=== PATIENT | female | born 1950 | race Caucasian/White ===

== ENCOUNTER → 2018-04-06 08:40 | Outpatient (CLI) | payer MEDICARE, OTHER, SELFPAY ==
--- NOTE | 2018-04-06 | DI.MG.S_ITS ---
BILATERAL DIGITAL SCREENING MAMMOGRAM 3D/2D WITH CAD: 04/06/2018 CLINICAL: Routine screening. Comparison is made to exams dated: 05/17/2016 mammogram, 01/10/2014 mammogram, and 03/14/2015 mammogram - [facility]. There are scattered fibroglandular elements in both breasts. Current study was also evaluated with a Computer Aided Detection (CAD) system. No significant masses, calcifications, or other findings are seen in either breast. There has been no significant interval change. IMPRESSION: NEGATIVE There is no mammographic evidence of malignancy. A 1 year screening mammogram is recommended. This exam was interpreted at Station ID: [id number]. NOTE: For mammograms, a report in lay terms will be sent to the patient. Approximately 15% of breast malignancies will not be visualized mammographically. In the management of a palpable breast mass, a negative mammogram must not discourage biopsy of a clinically suspicious lesion. Electronically Signed By: Kathryn waterman/alexus:04/06/2018 11:31:06 letter sent: Normal Exam ACR BI-RADS Category 1: Negative 3341F
== END ==
PROVIDERS: PCP Family Medicine; Visit Provider Family Medicine
DX: Z12.31 Encounter for screening mammogram for malignant neoplasm of breast (principal); M81.0 Age-related osteoporosis without current pathological fracture
CPT/HCPCS: 77063; 77067; 77080

== ENCOUNTER 2018-04-20 08:27 | Day surgery (SDC) | payer MEDICARE, OTHER, SELFPAY ==
--- NOTE | 2018-04-20 | PATH_ITS ---
[facility] Accession Number: [id number] . 01 Material submitted: . CECAL POLYP . 02 Diagnosis: Cecum, Polyp, Biopsy: Tubular adenoma. MRV/04/24/2018 . 02 Electronically signed: . Kathe Lucero MD, Pathologist NPI- [id number] . 01 Gross description: . CECAL POLYP: Received in formalin are 2 fragment(s) of argueta, soft tissue measuring 0.8 x 0.3 x 0.2 cm to 0.3 x 0.3 x 0.1 cm submitted entirely in 1 cassette(s) /CKI /CKI . 02 Pathologist provided ICD-10: D12.0 . 02 CPT . 746145 Specimen Comment: A duplicate report has been generated due to demographic updates. Performed at: 01 [facility] [address] [place] [place] [address], [place], [place] [id number] MD Kem Méndez MD Phone: [phone] Performed at: [facility] [address] [place], [place] [id number] MD Manpreet Ray MD Phone: [phone]
[2018-04-20 08:39] VITALS: BP 145/101; PULSE 92; RESP 12; TEMP 36.3; O2SAT 96; BMI 33.3
[2018-04-20] MEDS: SODIUM CHLORIDE 0.9% 1,000 ML 200 ML IV (08:39)
[2018-04-20 09:09] VITALS: BMI 33.3
--- NOTE | 2018-04-20 09:34 | PM.HP.1 ---
History of Present Illness Date Patient Seen: 04/20/18 Time Patient Seen: 09:35 Chief complaint: [id number] Narrative: Wonderful 67-year-old lady with a personal history of diverticulitis. Her last colonoscopy was 5 years ago. She does not recall having any polyps in the past. She denies any abdominal pain today and denies any nausea or fever. She is here today for surveillance colonoscopy. Patient History Family & Social History Family History: Reviewed 04/20/18 by Heidi Lazar MD Social History: household members family Meds Home Medications Medication Instructions Recorded Confirmed Type LEVOTHYROXINE SODIUM (#SYNTHROID) #0 06/15/11 History aripiprazole [Abilify] #0 06/15/11 History atorvastatin [Lipitor] #0 06/15/11 History metoprolol tartrate PO DAILY 04/20/18 History Allergies Allergy/AdvReac Type Severity Reaction Status Date / Time Penicillins [PENICILLINS] Allergy Unknown Unverified 09/28/17 12:58 Sulfa (Sulfonamide Allergy Unknown Unverified 09/28/17 12:58 Antibiotics) [SULFA (SULFONAMIDE ANTIBIOTICS)] Review of Systems Review of Systems All systems reviewed & are unremarkable except as noted in HPI and below Exam Vital Signs (past 8 hours): - 04/20/18 08:39 Temperature 97.3 F L Pulse Rate 92 H Respiratory Rate 12 Blood Pressure 145/101 H Pulse Oximetry 96 Oxygen Delivery Method Room Air Narrative Exam Narrative: One full 67-year-old lady in no distress HEENT: Normocephalic and atraumatic, pupils equal round reactive to light accommodation with anicteric sclera Lungs: Clear to auscultation bilaterally Heart: Regular rate and rhythm without murmur rub or gallop Abdomen: Soft, nontender, active bowel sounds Extremities: Warm and well perfused without edema Assessment & Plan Plan: Assessment/Plan Narrative: [place] 67-year-old lady with a personal history of diverticulitis and 2 fairly severe episodes this past year. It has been 5 years since her last colonoscopy. We have discussed the risks and benefits of colonoscopy and the patient expressed a desire to complete the procedure today.
[2018-04-20] MEDS: MIDAZOLAM 5 MG/5 ML VIAL IV (10:02)
[2018-04-20] MEDS: fentaNYL 250 MCG/5 ML INJ IV (10:03)
--- NOTE | 2018-04-20 10:07 | PM.OP.1 ---
Operative Date/Time/Diagnoses Date of procedure: 04/20/18 Time of procedure: 10:07 Pre-op diagnosis: Diverticulitis Post-op diagnosis: same Procedure & Clinicians Procedure: Colonoscopy to the cecum with polypectomy x1 Same procedure as scheduled: Yes Indications: Last colonoscopy 5 years ago Surgeon: Heidi Lazar Anesthesia Type: Sedation (Versed 5 mg, fentanyl 200 mcg) Operative Notes Findings: 1. Excellent prep 2. A single 2-3 mm polyp in the cecum-removed with cold forceps and retained for pathology 3. Mildly tortuous sigmoid colon 4. Sigmoid diverticulosis without evidence of diverticulitis. No false passages are noted. No evidence of inflammation 5. Grade 2 internal hemorrhoids Closure Type: not applicable Specimen(s): other (Polyp at the cecum) Estimated Blood Loss (mL): 1 Procedure in detail: After obtaining informed consent, the patient was brought to the GI suite and placed in the left lateral decubitus position on the examination table. After placement of appropriate monitors, the patient was given incremental doses of Versed and Fentanyl until an appropriate level of sedation was achieved. A time out was held per SCOAP protocol. A digital rectal examination was performed and did not reveal any masses or obstructing lesions. The colonoscope was gently passed into the patient's anus and the entire colon navigated to the level of the cecum with minimal difficulty. Once in the cecum, the scope was withdrawn being sure to go before and beyond all mucosal folds and prominences and get an excellent examination. The findings are noted above. At the level of the rectal vault, the scope was retroflexed and the internal anal canal was examined. The scope was straightened and air aspirated from the colon. The instrument was removed from the patient's body and the procedure was concluded. The patient was allowed to awaken from sedation without difficulty and taken to the post-anesthesia care unit in good condition. Total sedation time 26 min Total withdrawal time 13 min 12 sec Condition: stable Disposition: PACU Plan for aftercare: 1. Discharge to home 2. Plan for next colonoscopy in 5 years or as clinically indicated 3. We will contact you with pathology results and any additional recommendations.
[2018-04-20 10:11] VITALS: BP 105/70; PULSE 80; RESP 10; TEMP 36.2; O2SAT 97
[2018-04-20 10:15] VITALS: BP 104/79; PULSE 91; RESP 19; O2SAT 96
--- NOTE | 2018-04-20 10:18 | SUR.PHASEI ---
stable pacu to opd.
[2018-04-20 10:20] VITALS: BP 115/83; PULSE 81; RESP 16; TEMP 36.6; O2SAT 97
[2018-04-20 10:25] VITALS: BP 115/83; PULSE 91; RESP 15; TEMP 36.8; O2SAT 97
== END 2018-04-20 10:42 | disposition home or self-care (01) ==
PROVIDERS: PCP Family Medicine; Referring Provider Surgery; Visit Provider Surgery
PROC: 0DJD8ZZ Inspection of Lower Intestinal Tract, Via Natural or Artificial Opening Endoscopic (ICD-10-PCS; CPT 45378; principal; 2018-04-20 09:45)
DX: Z87.19 Personal history of other diseases of the digestive system (principal); K57.30 Diverticulosis of large intestine without perforation or abscess without bleeding; K64.1 Second degree hemorrhoids; D12.0 Benign neoplasm of cecum
CPT/HCPCS: 45380; 88305; 99152; 99153; J2250; J3010

== ENCOUNTER → 2018-05-17 11:01 | Outpatient (CLI) | payer MEDICARE, OTHER, SELFPAY ==
--- NOTE | 2018-05-17 | DI.CT.S_ITS ---
PROCEDURE: CT UE RT WO CON INDICATIONS: Right shoulder pain. Displaced fracture of glenoid cavity of RIGHT scapula post fall. TECHNIQUE: Noncontrast 1-1.5 mm thick sections acquired from the acromioclavicular joint to the inferior scapula, with coronal and sagittal reformatting. COMPARISON: [facility], CR, XR SHOULDER 2+ VIEWS RIGHT, 05/15/2018, 11:45. FINDINGS: Image quality: Diagnostic. Bones: There is a comminuted intra-articular fracture identified involving the glenoid with a moderate-sized displaced fragment noted along the superior margin of the glenohumeral joint. This fracture is predominantly seen along the anteroinferior aspect of the glenoid, suspicious for a bony Bankart fracture. This fracture measures approximately 2.5 cm in craniocaudal dimension and 7 mm in width. The humeral head appears to be intact. No displaced fractures of the humerus are evident. The remainder of the scapula is unremarkable. There are degenerative changes of the glenohumeral and acromioclavicular joints. No suspicious osseous lesions are identified. Soft tissues: There is a large glenohumeral joint effusion. No soft tissue masses or drainable fluid collections are evident. The imaged portions of the right lung are grossly unremarkable. IMPRESSION: 1. Comminuted anteroinferior glenoid fracture with moderate displaced fragments present. This is suggestive of a sustained anteroinferior shoulder dislocation. Please correlate clinically. 2. The humeral head appears intact. 3. Large joint effusion. Dictated by: Kyle Day M.D. on 05/17/2018 at 16:32 Approved by: Kyle Day M.D. on 05/17/2018 at 16:37
== END ==
PROVIDERS: PCP Family Medicine; Visit Provider Orthopaedic Surgery
DX: S42.141A Displaced fracture of glenoid cavity of scapula, right shoulder, initial encounter for closed fracture (principal); M25.411 Effusion, right shoulder; M19.011 Primary osteoarthritis, right shoulder
CPT/HCPCS: 73200

== ENCOUNTER → 2020-04-03 12:26 | Outpatient (CLI) | payer MEDICARE, OTHER, SELFPAY ==
--- NOTE | 2020-04-03 | DI.MG.S_ITS ---
BILATERAL DIGITAL SCREENING MAMMOGRAM 3D/2D WITH CAD: 04/03/2020 CLINICAL: Routine screening. Comparison is made to exams dated: 04/06/2018 mammogram, 05/17/2016 mammogram, and 03/14/2015 mammogram - [facility]. There are scattered fibroglandular elements in both breasts. Current study was also evaluated with a Computer Aided Detection (CAD) system. No significant masses, calcifications, or other findings are seen in either breast. There has been no significant interval change. IMPRESSION: NEGATIVE There is no mammographic evidence of malignancy. A 1 year screening mammogram is recommended. This exam was interpreted at Station ID: [id number]. NOTE: For mammograms, a report in lay terms will be sent to the patient. Approximately 15% of breast malignancies will not be visualized mammographically. In the management of a palpable breast mass, a negative mammogram must not discourage biopsy of a clinically suspicious lesion. Electronically Signed By: Kem gonsalez/alexus:04/03/2020 12:55:16 letter sent: Normal Exam ACR BI-RADS Category 1: Negative 3341F
== END ==
PROVIDERS: PCP Family Medicine; Referring Provider Family Medicine; Visit Provider Family Medicine
DX: Z12.31 Encounter for screening mammogram for malignant neoplasm of breast (principal); M85.852 Other specified disorders of bone density and structure, left thigh; Z78.0 Asymptomatic menopausal state; E07.9 Disorder of thyroid, unspecified
CPT/HCPCS: 77063; 77067; 77080

== ENCOUNTER → 2020-10-28 16:48 | Outpatient (CLI) | payer MEDICARE, OTHER, SELFPAY ==
--- NOTE | 2020-10-28 16:52 | DI.RAD.S_ITS ---
PROCEDURE: XR CERVICAL SPINE 2V OR 3V INDICATIONS: NECK PAIN TECHNIQUE: 3 view(s) of the cervical spine were acquired. COMPARISON: None. FINDINGS: Bones: No acute fracture. Multilevel degenerative endplate sclerosis and spurring. Diffuse facet arthropathy. Mild narrowing of the C5-C6 disc space. Remaining disc spaces preserved. Straightening of the normal lordotic curvature. Soft tissues: No prevertebral soft tissue swelling. IMPRESSION: Cervical spondylosis most pronounced at C5-C6. Diffuse facet arthropathy. Straightening of the normal lordotic curvature. Dictated by: Isaac Jones M.D. on 10/28/2020 at 17:42 Approved by: Isaac Jones M.D. on 10/28/2020 at 17:43
== END ==
PROVIDERS: PCP Family Medicine; Referring Provider Family Medicine; Visit Provider Family Medicine
DX: M54.2 Cervicalgia (principal); M47.812 Spondylosis without myelopathy or radiculopathy, cervical region
CPT/HCPCS: 72040

== ENCOUNTER → 2021-03-29 12:41 | Outpatient (CLI) | payer MEDICARE, OTHER, SELFPAY ==
[2021-03-29 13:31] LABS: COVID19 -Nasal RAPID POSITIVE (Negative)
== END ==
PROVIDERS: PCP Family Medicine; Visit Provider Nurse Practitioner Family
DX: U07.1 COVID-19 (principal)
CPT/HCPCS: 87635

== ENCOUNTER → 2021-04-22 15:04 | Outpatient (CLI) | payer MEDICARE, OTHER, SELFPAY | PROVIDERS: PCP Family Medicine; Referring Provider Family Medicine; Visit Provider Family Medicine | DX: Z12.31 Encounter for screening mammogram for malignant neoplasm of breast (principal); Z53.8 Procedure and treatment not carried out for other reasons ==

== ENCOUNTER → 2021-05-04 12:49 | Outpatient (CLI) | payer MEDICARE, OTHER, SELFPAY ==
[2021-05-04 14:10] LABS: Add Manual Diff / Slide Review NO; Basophils Absolute Auto 100 /uL (0-100); Basophils Percent Auto 1.2 % (0-2); Eosinophils Absolute Auto 300 /uL (0-450); Eosinophils Percent Auto 4.3 % (2-4); Hematocrit 38.1 % (36-46); Hemoglobin 12.7 g/dL (12.0-16.0); Lymphocytes Absolute Auto 2100 /uL (1100-4500); Lymphocytes Percent Auto 28.8 % (25-40); Mean Corpuscular HGB Conc 33.3 % (30-36); Mean Corpuscular Hemoglobin 27.2 PG (26-34); Mean Corpuscular Volume 81.6 fL (80-100); Monocytes Absolute Auto 500 /uL (0-900); Monocytes Percent Auto 7.1 % (3-14); Neutrophils Absolute Auto 4200 /uL (1500-7000); Neutrophils Percent Auto 58.6 % (50-75); Platelet Count 221 X10^3/uL (150-400); Red Blood Cell Count 4.67 X10^6/uL (4.0-5.2); Red Cell Distribution Width 16.4 % (11.6-14.8); White Blood Cell Count 7.2 X10^3/uL (4.5-11.0)
[2021-05-04 14:19] LABS: Alanine Aminotransferase 22 IU/L (<35); Albumin 4.1 g/dL (3.5-5.0); Albumin Globulin Ratio 1.6 (1.0-2.8); Alkaline Phosphatase 41 U/L (38-126); Aspartate Aminotransferase 27 IU/L (14-36); BUN Creatinine Ratio 24.4 (6-22); Bilirubin Total 0.3 mg/dL (0.2-1.3); Blood Urea Nitrogen 22 mg/dL (7-17); Calcium 9.7 mg/dL (8.4-10.2); Carbon Dioxide 24 mmol/L (22-32); Chloride 106 mmol/L (98-107); Estimated Glomerular Filt Rate > 60.0 mL/min (>60); Globulin 2.6 g/dL (1.7-4.1); Glucose 86 mg/dL (80-110); HEMOLYSIS < 15 (0-50); Potassium 4.8 mmol/L (3.4-5.1); Sodium 141 mmol/L (137-145); Total Protein 6.7 g/dL (6.3-8.2)
== END ==
PROVIDERS: PCP Family Medicine; Referring Provider Family Medicine; Visit Provider Family Medicine
DX: R59.1 Generalized enlarged lymph nodes (principal); Z86.16 Personal history of COVID-19
CPT/HCPCS: 36415; 80053; 85025

== ENCOUNTER → 2021-05-21 13:22 | Outpatient (CLI) | payer MEDICARE, OTHER, SELFPAY ==
--- NOTE | 2021-05-21 | DI.MG.S_ITS ---
BILATERAL DIGITAL DIAGNOSTIC MAMMOGRAM 3D/2D: 05/21/2021 CLINICAL: Right breast lump. Fibrocystic breast disease. Comparison is made to exams dated: 04/03/2020 mammogram, 04/06/2018 mammogram, and 05/17/2016 mammogram - [facility]. There are scattered fibroglandular elements in both breasts. No significant masses, calcifications, or other findings are seen in either breast. IMPRESSION: INCOMPLETE: NEEDS ADDITIONAL IMAGING EVALUATION There is no abnormality seen in the right breast to correspond with the palpable abnormality in the lower inner quadrant, however, ultrasound is recommended. Ultrasound will be performed immediately following the current exam. This exam was interpreted at Station ID: [id number]. NOTE: For mammograms, a report in lay terms will be sent to the patient. Approximately 15% of breast malignancies will not be visualized mammographically. In the management of a palpable breast mass, a negative mammogram must not discourage biopsy of a clinically suspicious lesion. Electronically Signed By: Kem Raphael M.D. ddp/:05/21/2021 13:57:26 ACR BI-RADS Category 0: Incomplete 3340F
--- NOTE | 2021-05-21 | DI.RAD.S_ITS ---
PROCEDURE: XR LUMBAR SPINE 2-3V INDICATIONS: BACK PAIN TECHNIQUE: 3 views of the lumbar spine were acquired. COMPARISON: CT, ABDOMEN/PELVIS WITH CONTRAST, 07/07/2017, 13:34. FINDINGS: Bones: 5 jjo-emq-lwvcfmm vertebrae are present. There is normal bony alignment. Small vertebral body osteophytes. Lower lumbar spine facet joint hypertrophy. Mild disc space height loss at L5-S1. No vertebral body compression fractures. No suspicious bony lesions. Soft tissues: Overlying bowel gas pattern is normal. No suspicious soft tissue calcifications. IMPRESSION: No compression fracture. Hghr-gw-ijqpinqh degenerative change. Dictated by: Edgar Llamas M.D. on 05/21/2021 at 15:14 Approved by: Edgar Llamas M.D. on 05/21/2021 at 15:16
--- NOTE | 2021-05-21 | DI.US.S_ITS ---
LIMITED ULTRASOUND OF RIGHT BREAST: 05/21/2021 CLINICAL: Palpable right breast lump. Comparison is made to exams dated: 05/21/2021 mammogram, 04/03/2020 mammogram, 04/06/2018 mammogram, 05/17/2016 ultrasound, 05/17/2016 mammogram, and 03/14/2015 mammogram - [facility]. Real-time ultrasound of the right breast 4 o'clock region was performed on the area of interest. No discrete cystic or solid mass lesion identified in the area of palpable abnormality. IMPRESSION: NEGATIVE There is no sonographic evidence of malignancy. There is no abnormality seen in the right breast to correspond with the palpable abnormality at 4 o'clock, however, clinical followup is recommended. A 1 year screening mammogram is recommended. This exam was interpreted at Station ID: [id number]. Electronically Signed By: Kem Raphael M.D. ddvinnie/:05/21/2021 14:43:02 letter sent: Clinical Evaluation Ultrasound BI-RADS: 1 Negative
== END ==
PROVIDERS: PCP Family Medicine; Referring Provider Family Medicine; Visit Provider Family Medicine
DX: R92.8 Other abnormal and inconclusive findings on diagnostic imaging of breast (principal); N60.29 Fibroadenosis of unspecified breast; N63.14 Unspecified lump in the right breast, lower inner quadrant; M47.816 Spondylosis without myelopathy or radiculopathy, lumbar region; M54.9 Dorsalgia, unspecified
CPT/HCPCS: 72100; 76642; 77066; G0279

== ENCOUNTER → 2022-04-06 11:40 | Outpatient (CLI) | payer MEDICARE, OTHER, SELFPAY | PROVIDERS: PCP Family Medicine; Referring Provider Family Medicine; Visit Provider Family Medicine | DX: M81.0 Age-related osteoporosis without current pathological fracture | CPT/HCPCS: 77080 ==

== ENCOUNTER → 2022-06-24 10:57 | Outpatient (CLI) | payer MEDICARE, OTHER, SELFPAY ==
--- NOTE | 2022-06-24 | DI.MG.S_ITS ---
BILATERAL DIGITAL SCREENING MAMMOGRAM 3D/2D WITH CAD: 06/24/2022 CLINICAL: Routine screening. Family history of breast cancer. Comparison is made to exams dated: 05/21/2021 mammogram, 04/03/2020 mammogram, and 04/06/2018 mammogram - [facility]. There are scattered areas of fibroglandular density in both breasts (category b / 25%-50% glandular tissue). Current study was also evaluated with a Computer Aided Detection (CAD) system. No significant masses, calcifications, or other findings are seen in either breast. There has been no significant interval change. IMPRESSION: NEGATIVE There is no mammographic evidence of malignancy. A 1 year screening mammogram is recommended. Based on the Tyrer Cuzick model (a risk assessment model) the patient's lifetime risk is 2.8% and her 10 year risk is 2.1%. According to the ACR, ACS, and NCCN guidelines, an annual breast MRI exam along with mammogram is recommended if the patient's lifetime risk is 20% or greater. This exam was interpreted at Station ID: [id number]. NOTE: For mammograms, a report in lay terms will be sent to the patient. Approximately 15% of breast malignancies will not be visualized mammographically. In the management of a palpable breast mass, a negative mammogram must not discourage biopsy of a clinically suspicious lesion. Electronically Signed By: Lupillo Osborn M.D., jr/alexus:06/24/2022 12:16:30 letter sent: Normal Exam ACR BI-RADS Category 1: Negative 3341F
== END ==
PROVIDERS: PCP Family Medicine; Referring Provider Family Medicine; Visit Provider Family Medicine
DX: Z12.31 Encounter for screening mammogram for malignant neoplasm of breast (principal); Z80.3 Family history of malignant neoplasm of breast
CPT/HCPCS: 77063; 77067

== ENCOUNTER → 2023-07-20 10:50 | Outpatient (CLI) | payer MEDICARE, OTHER, SELFPAY ==
--- NOTE | 2023-07-20 10:54 | DI.RAD.S_ITS ---
PROCEDURE: XR CHEST 2V INDICATIONS: COUGH TECHNIQUE: 2 views of the chest were acquired. COMPARISON: None. FINDINGS: Surgical changes and devices: None. Lungs and pleura: Lungs are clear. No pleural effusions or pneumothorax. Mediastinum: Mediastinal contours are normal. Heart size is normal. Bones and chest wall: No suspicious bony abnormalities. Soft tissues appear unremarkable. IMPRESSION: No acute cardiopulmonary abnormality is seen. Dictated by: Leif Rodgers M.D. on 07/20/2023 at 11:27 Approved by: Leif Rodgers M.D. on 07/20/2023 at 11:41
== END ==
PROVIDERS: PCP Family Medicine; Referring Provider Family Medicine; Visit Provider Family Medicine
DX: R05.2 Subacute cough (principal); R07.89 Other chest pain
CPT/HCPCS: 71046

== ENCOUNTER → 2023-08-06 10:15 | Outpatient (CLI) | payer MEDICARE, OTHER, SELFPAY ==
--- NOTE | 2023-08-06 10:16 | DI.MG.S_ITS ---
BILATERAL DIGITAL SCREENING MAMMOGRAM 3D/2D WITH CAD: 08/06/2023 CLINICAL: Routine screening. Family history of breast cancer. Comparison is made to exams dated: 06/24/2022 mammogram, 05/21/2021 mammogram, 04/03/2020 mammogram, and 04/06/2018 mammogram - [facility]. Both breasts are heterogeneously dense, which may obscure small masses (category c / 51-75% glandular tissue). Current study was also evaluated with a Computer Aided Detection (CAD) system. No significant masses, calcifications, or other findings are seen in either breast. There has been no significant interval change. IMPRESSION: NEGATIVE There is no mammographic evidence of malignancy. A 1 year screening mammogram is recommended. Based on the Tyrer Cuzick model (a risk assessment model) the patient's lifetime risk is 3.7% and her 10 year risk is 3.3%. According to the ACR, ACS, and NCCN guidelines, an annual breast MRI exam along with mammogram is recommended if the patient's lifetime risk is 20% or greater. This exam was interpreted at Station ID: [id number]. NOTE: For mammograms, a report in lay terms will be sent to the patient. Approximately 15% of breast malignancies will not be visualized mammographically. In the management of a palpable breast mass, a negative mammogram must not discourage biopsy of a clinically suspicious lesion. Electronically Signed By: Armand juárez/alexus:08/08/2023 13:36:45 letter sent: Normal Exam ACR BI-RADS Category 1: Negative 3341F
== END ==
LOC: MAMMO 10:16
PROVIDERS: PCP Family Medicine; Referring Provider Family Medicine; Visit Provider Family Medicine
DX: Z12.31 Encounter for screening mammogram for malignant neoplasm of breast (principal); Z80.3 Family history of malignant neoplasm of breast; R92.333 Mammographic heterogeneous density, bilateral breasts
CPT/HCPCS: 77063; 77067

== ENCOUNTER → 2023-09-09 10:44 | Outpatient (CLI) | payer MEDICARE, OTHER, SELFPAY ==
--- NOTE | 2023-09-09 10:46 | DI.NM.S_ITS ---
PROCEDURE: NM VESNA PERF SPECT REST & STR Rest and exercise myocardial perfusion SPECT with gated imaging and ejection fraction RADIOPHARMACEUTICAL: 12.6 mCi Tc-99m sestamibi IV at rest and 25.5 mCi Tc-99m sestamibi IV at peak exercise. A one day-protocol was performed. INDICATIONS: Chest pain, unspecified TECHNIQUE: Radiopharmaceutical was injected at peak stress test, and also at rest. SPECT images were obtained. SPECT myocardial perfusion images were displayed in short axis, horizontal long axis, and vertical long axis views. Gated images were reviewed using [employer] software. COMPARISON: None. CARDIAC STRESS: A standard [place] treadmill exercise tolerance test was performed by the patient under the supervision of an attending staff. The patient exercised for 6 minutes and 3 seconds; functional aerobic impairment (AMY) is -11%. Hemodynamic data: There is normal blood pressure and heart rate response to exercise stress. Patient achieved 87% of maximum predicted heart rate at peak exercise. Symptoms: Patient denied chest pain during exercise. EKG: No diagnostic EKG changes of ischemia; no ectopy. FINDINGS: Raw data: There is good myocardial labeling by radiotracer. No significant motion artifacts. Zmyw-bq-vxdio ratio is 0.17 (normal is less than 0.38 for sestamibi tracer, and less than 0.50 for thallium tracer). Left ventricle function: Gated images demonstrate normal left ventricle wall thickening. No segmental wall motion abnormality. No transient ischemic dilation; TID is 0.88 (normal less than 1.3). The left ventricle resting end-diastolic volume is 56 mL. Left ventricle stress ejection fraction is 85%; normal values are above 45%. Myocardial perfusion: There is a mildly intense fixed distal anterior wall defect that is probably breast attenuation artifact but old non-transmural infarction can't be definitively excluded as prone imaging couldn't be obtained due to shoulder pain. IMPRESSION: Low risk, probably normal treadmill nuclear stress test from inducible ischemia standpoint. 1) There is a mildly intense fixed distal anterior wall defect that is probably breast attenuation artifact but old non-transmural infarction can't be definitively excluded as prone imaging couldn't be obtained due to shoulder pain. 2) Normal left ventricular size, wall motion, and systolic function (EF post stress 85%). 3) No diagnostic ST changes during exercise or recovery. 4) No angina during the study. 5) Above average exercise capacity (6.1METs, AMY -11%). Target heart rate reached. Appropriate BP response to exercise. 6) No prior nuclear stress test available for comparison. Dictated by: Benjamin Jernigan MD on 09/09/2023 at 16:41 Approved by: Benjamin Jernigan MD on 09/09/2023 at 16:45
== END ==
PROVIDERS: PCP Family Medicine; Referring Provider Family Medicine; Visit Provider Family Medicine
DX: R07.9 Chest pain, unspecified (principal); R42 Dizziness and giddiness; R55 Syncope and collapse
CPT/HCPCS: 78452; 93017; A9502

== ENCOUNTER 2023-11-03 10:57 | Day surgery (SDC) | payer MEDICARE, OTHER, SELFPAY ==
--- NOTE | 2023-11-03 | PATH_ITS ---
[facility] Accession Number: [id number] No. of containers..01 Tissue . 01 Material submitted: . colon - ASCENDING POLYP . 01 Diagnosis: ASCENDING POLYP: Tubular adenoma. STO 11/11/2023 1039 Local . 01 Electronically signed: . Kem Méndez MD, Pathologist NPI- [id number] . 01 Gross description: . ASCENDING POLYP: Received in formalin are 2 fragment(s) of argueta, soft tissue measuring 0.3 x 0.3 x 0.2 cm to 0.6 x 0.3 x 0.3 cm submitted entirely in 1 cassette(s) /SASCHA 11/11/2023 1039 Local . 01 Pathologist provided ICD-10: D12.2 . 01 CPT . 267148 Specimen Comment: A courtesy copy of this report has been sent to [phone] Performed at: [address] [facility] [id number] MD Kem Méndez MD Phone: [phone]
[2023-11-03 11:12] VITALS: BP 145/89; PULSE 87; RESP 16; TEMP 36.4; O2SAT 96
[2023-11-03] MEDS: LACTATED RINGERS 1,000 ML 42 ML IV (11:20)
--- NOTE | 2023-11-03 11:25 | PM.HP.1 ---
History of Present Illness History of Present Illness Date Patient Seen: 11/03/23 Time Patient Seen: 11:25 Chief complaint: Colonoscopy Narrative: Caroline is a 73-year-old woman who is here for a colonoscopy. Her last was in 2018 and polyps were removed. No family history of colon cancer. [facility] Social History household members: family Smoking Status: Never smoker Meds Home Medications and Allergies Home Medications Medication Instructions Recorded Confirmed Type LEVOTHYROXINE SODIUM (#SYNTHROID) 50 mcg ##0 06/15/11 03/29/21 History atorvastatin 40 mg tablet (Lipitor) ##0 06/15/11 03/29/21 History metoprolol tartrate PO DAILY 04/20/18 03/29/21 History metformin 500 mg tablet 500 mg PO BID 03/29/21 11/03/23 History quetiapine 200 mg tablet 200 mg PO DAILY 03/29/21 11/03/23 History peg 3350-sod sulf,qfqgh-zyz-acb 1,000 ml PO DIRECTED #2,000 mL 10/11/23 11/03/23 Rx 178.7-7.3-0.5-1.12-0.9 gram oral soln (Suflave) Allergies Allergy/AdvReac Type Severity Reaction Status Date / Time Penicillins [PENICILLINS] Allergy Unknown Verified 11/03/23 11:09 Sulfa (Sulfonamide Allergy Unknown Verified 11/03/23 11:09 Antibiotics) [SULFA (SULFONAMIDE ANTIBIOTICS)] Exam Vital Signs (past 8 hours): - 11/03/23 11:12 Temperature 97.5 F L Pulse Rate 87 Respiratory Rate 16 Blood Pressure 145/89 H Pulse Oximetry 96 Oxygen Delivery Method Room Air Oxygen Delivery Method Room Air Const General: No acute distress Resp Effort & Inspection: normal respiratory effort Assessment & Plan Assessment and plan (1) History of colon polyps: Status: Acute Plan Reviewed the risks and benefits of colonoscopy and she would like to proceed.
--- NOTE | 2023-11-03 11:57 | PM.OP.COLON ---
Operative Date/Time/Diagnoses Date of procedure: 11/03/23 Time of procedure: 11:57 Pre-op diagnosis: Colon cancer screening Post-op diagnosis: same Procedure & Clinicians Study performed: Colonoscopy Same procedure as scheduled: Yes Surgeon: Rob Mccall Procedure Notes Procedure in detail: Surgeon: Rob Mccall MD Anesthesia: Sharath Burden MD Procedure: The patient was brought to the endoscopy suite, placed in left lateral decubitus position. The patient was connected to monitoring devices. A time-out was performed. Sedation was administered. Once the patient was adequately sedated, a digital rectal exam was performed and was normal. The scope was then inserted and advanced to the cecum where the appendiceal orifice was identified and photographed. The scope was then slowly withdrawn over greater than 6 minutes. The mucosa was thoroughly inspected. There was a 6 mm polyp in the ascending colon removed with a cold snare. There were some rare sigmoid diverticula. The scope was retroflexed in the rectum. No other abnormalities were found. The scope was straightened and removed. The patient was awakened and brought to recovery. Scope withdrawal time: 9 minutes Sedation time: 19 minutes EBL: 5 mL Findings: 6 mm ascending colon polyp and sigmoid diverticulosis Post-procedure Disposition: PACU
[2023-11-03 12:00] VITALS: BP 120/70; PULSE 76; RESP 16; O2SAT 98
[2023-11-03 12:03] VITALS: BP 124/70; PULSE 79; RESP 16; TEMP 36.2; O2SAT 98
[2023-11-03 12:07] VITALS: BP 129/72; PULSE 76; RESP 14; TEMP 36.6; O2SAT 98
[2023-11-03 12:08] VITALS: BP 130/70; PULSE 76; RESP 16; O2SAT 99
== END 2023-11-03 12:19 | disposition home or self-care (01) ==
PROVIDERS: PCP Family Medicine; Referring Provider Surgery; Visit Provider Surgery
PROC: 0DJD8ZZ Inspection of Lower Intestinal Tract, Via Natural or Artificial Opening Endoscopic (ICD-10-PCS; CPT 45378; principal; 2023-11-03 11:45)
DX: Z12.11 Encounter for screening for malignant neoplasm of colon (principal); Z86.010 Personal history of colon polyps; K57.30 Diverticulosis of large intestine without perforation or abscess without bleeding; D12.2 Benign neoplasm of ascending colon
CPT/HCPCS: 45385; J2704

== ENCOUNTER → 2024-07-19 12:55 | Outpatient (CLI) | payer MEDICARE, OTHER, SELFPAY ==
--- NOTE | 2024-07-19 12:57 | DI.RAD.S_ITS ---
PROCEDURE: XR DEXA AXIAL SKELETON INDICATIONS: OSTEOPOROSIS,POSTMENOPAUSAL COMPARISON: [facility], , XR DEXA AXIAL SKELETON, 04/06/2022, 12:05. [facility], CR, XR DEXA AXIAL SKELETON, 04/03/2020, 13:22. FINDINGS: Lumbar Spine: Bone mineral density 0.832 g/cm2, T score -1.7, increased by 7.2%. Left Femoral Neck: Bone mineral density 0.622 g/cm2, T score -2.0. Left Hip: Bone mineral density 0.705 g/cm2, T score -1.9, increased by 2.1%. Fracture Risk Calculation (when applicable): 10-year fracture risk of a major osteoporotic fracture 23 percent and of a hip fracture 13 percent. (T score greater or equal to -1.0 to: NORMAL) (T score from -1.1 to -2.4: OSTEOPENIA) (T score less than or equal to -2.5: OSTEOPOROSIS) IMPRESSION: Low bone mineral density (osteopenia) by WHO classification. Follow-up guidelines as follows: Osteoporosis: Consider a repeat DEXA and Vertebral Fracture Assessment (VFA) exam in 2 years or sooner if medically necessary, to reassess this patient's status. Osteopenia: Consider a repeat DEXA in 2-3 years to reassess this patient's status, or if there is a new clinical indication. Normal: Consider a repeat DEXA in 5 years or sooner, or if there is a new clinical indication. All treatment decisions require clinical judgment and consideration of individual patient factors, including patient preferences, comorbidities, previous drug use, risk factors not captured in the FRAX model (e.g., frailty, falls, vitamin D deficiency, increased bone turnover, interval significant decline in bone density ) and possible under- or over-estimation of fracture risk by FRAX. In addition, the NOF Guide recommends that FDA-approved medical therapies be considered in postmenopausal women and men age >= 50 years with a: * Hip or vertebral (clinical or morphometric) fracture * T-score of <=-2.5 at the spine or hip * Ten-year fracture probability by FRAX of >= 3% for hip fracture or >=20% for major osteoporotic fracture. Dictated by: Leif Rodgers M.D. on 07/19/2024 at 19:46 Approved by: Leif Rodgers M.D. on 07/19/2024 at 19:47
== END ==
PROVIDERS: PCP Family Medicine; Referring Provider Family Medicine; Visit Provider Family Medicine
DX: M81.0 Age-related osteoporosis without current pathological fracture (principal)
CPT/HCPCS: 77080

== ENCOUNTER → 2024-08-09 14:34 | Outpatient (CLI) | payer MEDICARE, OTHER, SELFPAY ==
--- NOTE | 2024-08-09 14:37 | DI.MG.S_ITS ---
BILATERAL DIGITAL SCREENING MAMMOGRAM 3D/2D WITH CAD: 08/09/2024 CLINICAL: Routine screening. Family history of breast cancer. Comparison is made to exams dated: 08/06/2023 mammogram, 06/24/2022 mammogram, and 05/21/2021 mammogram - [facility]. There are scattered areas of fibroglandular density (category b / 25%-50% glandular tissue). Current study was also evaluated with a Computer Aided Detection (CAD) system. No significant masses, calcifications, or other findings are seen in either breast. There has been no significant interval change. IMPRESSION: NEGATIVE There is no mammographic evidence of malignancy. A 1 year screening mammogram is recommended. Based on the Tyrer Cuzick model (a risk assessment model) the patient's lifetime risk is 2.2% and her 10 year risk is 2.2%. According to the ACR, ACS, and NCCN guidelines, an annual breast MRI exam along with mammogram is recommended if the patient's lifetime risk is 20% or greater. This exam was interpreted at Station ID: [id number]. NOTE: For mammograms, a report in lay terms will be sent to the patient. Approximately 15% of breast malignancies will not be visualized mammographically. In the management of a palpable breast mass, a negative mammogram must not discourage biopsy of a clinically suspicious lesion. Electronically Signed By: Pili pittman/alexus:08/09/2024 17:55:34 letter sent: Normal Exam ACR BI-RADS Category 1: Negative
== END ==
PROVIDERS: PCP Family Medicine; Referring Provider Family Medicine; Visit Provider Family Medicine
DX: Z12.31 Encounter for screening mammogram for malignant neoplasm of breast (principal); Z80.3 Family history of malignant neoplasm of breast
CPT/HCPCS: 77063; 77067

== ENCOUNTER → 2025-04-10 08:58 | Outpatient (CLI) | payer MEDICARE, OTHER, SELFPAY ==
[2025-04-10 09:38] LABS: Add Manual Diff / Slide Review NO; Hematocrit 41.6 % (36-46); Hemoglobin 14.0 g/dL (12.0-16.0); Lymphocytes Absolute Auto 1900 /uL (1100-4500); Mean Corpuscular HGB Conc 33.6 % (30-36); Mean Corpuscular Hemoglobin 27.8 PG (26-34); Mean Corpuscular Volume 82.7 fL (80-100); Platelet Count 221 X10^3/uL (150-400)
[2025-04-10 09:54] LABS: Hemoglobin A1C% w Est Avg Glu 5.4 % (4.0-6.0)
[2025-04-10 09:59] LABS: Alanine Aminotransferase 20 IU/L (<35); Albumin 4.6 g/dL (3.5-5.0); Albumin Globulin Ratio 1.8 (1.0-2.8); Alkaline Phosphatase 50 U/L (38-126); Blood Urea Nitrogen 12 mg/dL (7-17); Calcium 10.0 mg/dL (8.4-10.2); Carbon Dioxide 30 mmol/L (22-32); Chloride 103 mmol/L (98-107); Cholesterol 186 mg/dL (140-199); Estimated Glomerular Filt Rate > 60 mL/min (>60); Globulin 2.6 g/dL (1.7-4.1); Glucose 122 mg/dL (70-99); HDL Cholesterol 73 mg/dL (40-60); HEMOLYSIS < 15 (0-50); Potassium 4.7 mmol/L (3.4-5.1); Sodium 140 mmol/L (137-145); Total Protein 7.2 g/dL (6.3-8.2); Triglycerides 118 mg/dL (35-150)
[2025-04-10 10:17] LABS: Free T4, Direct Thyroxine 1.15 ng/dL (0.78-2.19)
[2025-04-10 10:31] LABS: Thyroid Stimulating Hormone 1.37 uIU/mL (0.47-4.68)
== END ==
PROVIDERS: PCP Family Medicine; Referring Provider Family Medicine; Visit Provider Family Medicine
DX: E03.9 Hypothyroidism, unspecified (principal); E78.00 Pure hypercholesterolemia, unspecified; F31.70 Bipolar disorder, currently in remission, most recent episode unspecified; H90.5 Unspecified sensorineural hearing loss; F51.01 Primary insomnia; K21.9 Gastro-esophageal reflux disease without esophagitis; M81.0 Age-related osteoporosis without current pathological fracture; I10 Essential (primary) hypertension; R73.9 Hyperglycemia, unspecified; Z13.0 Encounter for screening for diseases of the blood and blood-forming organs and certain disorders involving the immune mechanism
CPT/HCPCS: 36415; 80053; 80061; 83036; 84439; 84443; 85025